=== PATIENT | female | born 1995 | race African-American/Black ===

== ENCOUNTER 2020-11-03 15:47 | Emergency (ER) | payer OTHER, SELFPAY ==
--- NOTE | 2020-11-03 15:50 | ED.EYEPROB ---
HPI - Eye Problem General Chief complaint: Eye Problems Stated complaint: Left eye Pain Time Seen by Provider: 11/03/20 16:19 Source: patient and RN notes reviewed Mode of arrival: ambulatory Limitations: no limitations History of Present Illness HPI Narrative: 25-year-old female presents concern for left eye pain, irritation, redness that started yesterday. Reports watery drainage throughout the day and crusty drainage when she woke up this morning. Reports she wears contact lenses, this pain started a day after she took out her contact lenses. She denies right eye problems, rhinorrhea, nasal congestion, sore throat. Denies visual changes. chief complaint: eye pain Related Data Allergies Allergy/AdvReac Type Severity Reaction Status Date / Time No Known Allergies Allergy Verified 11/03/20 16:00 Review of Systems Review of Systems: CONSTITUTIONAL: Denies malaise, chills, sweats, or fever. EYES: Denies visual changes. Reports left eye redness, irritation, pain, watery discharge. ENT: Denies rhinorrhea, congestion, sinus pain, otalgia or sore throat. SKIN: Denies rash or itching. NEUROLOGIC: Denies headache. All systems reviewed & are unremarkable except as noted in HPI and below PMFSH Comments At time of signature, agree with nursing past medical, surgical, social and family history. There is no relevant family history pertinent to the presenting complaint Exam Narrative: GENERAL: Well-appearing, well-nourished, and in no acute distress. HEAD: Normocephalic, atraumatic. EYES: PERRLA, right sclera clear, and EOMI. No nystagmus. Left sclera and conjunctive injected ENT: Nares clear. Mucous membranes moist. NECK: Supple. CHEST: No respiratory distress. Speaks in full sentences. HEART: Regular rate and rhythm. SKIN: Warm, dry, no visible rash. NEURO: Alert and oriented x3. PSYCH: Normal mood and affect Course Course Emergency Course: Patient is aware of diagnosis, understands and agrees to treatment plan. Anticipatory guidance given. Patient agrees to follow-up as directed and is aware of reasons to seek care at the emergency department. Portions of this record may have been created with voice recognition software Vital Signs Vital signs: Reviewed. MDM - Eye Problem MDM Narrative Medical decision making narrative: Consideration of the following conditions may be warranted for the presenting problem, they are not final diagnoses: Bacterial conjunctivitis, allergic conjunctivitis, viral conjunctivitis, foreign body, blepharitis, chalazion, hordeolum, corneal abrasion, preseptal cellulitis, orbital cellulitis. No evidence of proptosis, ophthalmoplegia, vision loss, pain with eye movement. Exam findings show no acute concerns or changes; patient is non-toxic appearing and is in no distress. Patient is appropriate for outpatient treatment and follow-up. Critical Care Time Critical Care Time Critical Care Time: No Discharge Plan Discharge Clinical Impression: Conjunctivitis Qualifiers: Conjunctivitis type: acute Acute conjunctivitis type: unspecified Laterality: left Qualified Code(s): H10.32 - Unspecified acute conjunctivitis, left eye Patient Disposition: Home, Self-Care Condition: Stable Instructions: Conjunctivitis (ED) Additional Instructions: Do not touch or rub your eye. Use a warm or cool washcloth on your eye for comfort Use eyedrops as directed Practice good handwashing and hygiene to prevent spread of infection You may take Tylenol or ibuprofen for pain Follow-up with PCP or retail service representative if condition is not improving in 2-3days. Go to the emergency room if you have pain behind your eye, pressure behind her eye, difficulty seeing, or other severe symptoms Prescriptions: New polymyxin B sulf-trimethoprim [Polytrim] 10,000 unit- 1 mg/mL drops 1 drp EACH EYE Q4H 7 Days Qty: 10 RF: 0 Follow-up/Referrals: PHYSICIAN,[facility] [facility]ER [Primary Care Provider] - Stand Alone Forms: Wor
[2020-11-03 16:04] VITALS: BP 117/59; PULSE 98; RESP 18; TEMP 36.8; O2SAT 99
== END 2020-11-03 16:31 | disposition home or self-care (01) ==
PROVIDERS: Emergency Provider Nurse Practitioner
DX: H10.32 Unspecified acute conjunctivitis, left eye (principal)
CPT/HCPCS: 99203; G0463

== ENCOUNTER 2021-05-02 10:02 | Emergency (ER) | payer OTHER, SELFPAY ==
[2021-05-02 10:12] VITALS: BP 118/56; PULSE 78; RESP 16; TEMP 36.6; O2SAT 99
--- NOTE | 2021-05-02 10:44 | ED.GENADULT ---
HPI - General Adult General Chief complaint: Upper Respiratory Infection Stated complaint: weakness/sore throat Time Seen by Provider: 05/02/21 10:44 Source: patient and RN notes reviewed Mode of arrival: ambulatory Limitations: no limitations History of Present Illness HPI narrative: 25-year-old female presented for complaint of weakness, bilateral ear pain, occasional cough and lightheadedness, onset yesterday. Endorses this morning feeling shortness of breath [id number] when she is her inhaler and felt better. Endorses a history of asthma. Denies vomiting, diarrhea, urinary complaints, fevers or chills. Sister has a fever. She has not been boosted for COVID. Has not had a flu shot. Related Data Home Medications Medication Instructions Recorded Confirmed albuterol sulfate INHALATION 05/02/21 budesonide-formoterol [Symbicort] INHALATION 05/02/21 Allergies Allergy/AdvReac Type Severity Reaction Status Date / Time No Known Allergies Allergy Verified 05/02/21 11:04 Review of Systems Review of Systems: CONSTITUTIONAL: Endorses malaise, denies chills, sweats, fever EYES: Denies visual changes, redness, or discharge ENT: Reports otalgia, denies rhinorrhea, congestion, sinus pain, sore throat CARDIOVASCULAR: Denies chest pain, palpitations, edema RESPIRATORY: Reports cough, post nasal drainage. Denies dyspnea GASTROINTESTINAL: Denies abdominal pain, nausea, vomiting, diarrhea SKIN: Denies rash or itching MUSCULOSKELETAL: Endorses myalgia NEUROLOGIC: Denies headache Exam Narrative: GENERAL: Ill-appearing, nontoxic [place] HEAD: Normocephalic EYES: PERRLA, conjunctivae clear ENT: Mucous membranes moist. TM pearly kennedy with dull light reflex bilaterally; no tragal tenderness. Oropharynx erythematous without lesions or exudate, no drooling, no hoarseness, no trismus, uvula midline. No tripod positioning, muffled voice, soft palate or pharyngeal wall bulging NECK: Supple. No lymphadenopathy CHEST: Clear to auscultation, breath sounds equal. No wheezing, rhonchi, rales, or stridor. No respiratory distress, speaks in full sentences. HEART: Regular rate and rhythm. No murmur heard. SKIN: Warm, dry, no rash. NEURO: Alert and oriented x3. PSYCH: Normal mood and affect Course Course Emergency Course: Patient is aware of diagnosis, understands and agrees to treatment plan. Anticipatory guidance given. Patient agrees to follow-up as directed and is aware of reasons to seek care at the emergency department. Portions of this record may have been created with voice recognition software Level of Care: Express Care Visit Vital Signs Vital signs: Vital Signs Temperature 97.9 F 05/02/21 10:12 Pulse Rate 78 05/02/21 10:12 Respiratory Rate 16 05/02/21 10:12 Blood Pressure 118/56 L 05/02/21 10:12 Pulse Oximetry 99 05/02/21 10:12 Temperature 97.9 F 05/02/21 10:12 Pulse Rate 78 05/02/21 10:12 Respiratory Rate 16 05/02/21 10:12 Blood Pressure 118/56 L 05/02/21 10:12 Pulse Oximetry 99 05/02/21 10:12 reviewed Medical Decision Making MDM Narrative Medical decision making narrative: Flu, Covid, strep swabs are negative. Patient will treat symptomatically. She is appropriate for outpatient treatment and follow-up. Differential Diagnosis Differential Diagnosis: Influenza, covid, sinusitis, OM, strep pharyngitis, URI Vital Signs Vital Signs: Vital Signs Temperature 97.9 F 05/02/21 10:12 Pulse Rate 78 05/02/21 10:12 Respiratory Rate 16 05/02/21 10:12 Blood Pressure 118/56 L 05/02/21 10:12 Pulse Oximetry 99 05/02/21 10:12 Temperature 97.9 F 05/02/21 10:12 Pulse Rate 78 05/02/21 10:12 Respiratory Rate 16 05/02/21 10:12 Blood Pressure 118/56 L 05/02/21 10:12 Pulse Oximetry 99 05/02/21 10:12 Lab Data Lab results reviewed: Yes I reviewed the patient's lab results. Discharge Plan Discharge Clinical Impression: Upper respiratory infection Qualifiers: URI ty
== END 2021-05-02 11:18 | disposition home or self-care (01) ==
PROVIDERS: Emergency Provider Nurse Practitioner Family
DX: J06.9 Acute upper respiratory infection, unspecified (principal); Z20.822 Contact with and (suspected) exposure to COVID-19
CPT/HCPCS: 87081; 87426; 87804; 87880; 99213; C9803; G0463

== ENCOUNTER 2021-05-27 17:10 | Emergency (ER) | payer OTHER, SELFPAY ==
[2021-05-27 17:11] VITALS: BP 131/78; PULSE 93; RESP 17; TEMP 36.9; O2SAT 99
--- NOTE | 2021-05-27 17:30 | ED.FEVER ---
HPI - Fever General Chief Complaint: Fever <MOI English Last Filed: 05/27/21 18:02> Stated Complaint: fever <MOI English Last Filed: 05/27/21 18:02> Time Seen by Provider: 05/27/21 17:22 <MOI English Last Filed: 05/27/21 18:02> Source: patient <MOI English Last Filed: 05/27/21 18:02> Mode of arrival: ambulatory <MOI English Last Filed: 05/27/21 18:02> Limitations: no limitations <MOI English Last Filed: 05/27/21 18:02> History of Present Illness HPI Narrative: This is a 26-year-old female that presents to the emergency department for cold symptoms present since yesterday. Reports fever, rhinorrhea, and sore throat. She is not influenza vaccinated. She did recently have COVID a couple of months ago. Denies cough or shortness of breath. <MOI English Last Filed: 05/27/21 18:02> Related Data Home Medications: Home Medications Medication Instructions Recorded Confirmed No Home Medications 05/27/21 05/27/21 <MOI English Last Filed: 05/27/21 18:02> Allergies/Adverse Reactions: Allergies Allergy/AdvReac Type Severity Reaction Status Date / Time No Known Allergies Allergy Verified 05/27/21 17:18 <MOI English Last Filed: 05/27/21 18:02> Review of Systems Review of Systems: CONSTITUTIONAL: Reports fever ENT: Reports rhinorrhea, sore throat, and otalgia. RESPIRATORY: Denies cough or dyspnea. <MOI English Last Filed: 05/27/21 18:02> All systems reviewed & are unremarkable except as noted in HPI and below <MOI English Last Filed: 05/27/21 18:02> [facility] Past Medical History Medical History: Medical History (Updated 04/17/22 @ 18:02 by Eliza Isidro PA-C) No active medical problems <Eliza Isidro PA-C - Last Filed: 05/27/21 18:02> Social History Social History: Social History (Updated 05/27/21 @ 17:32 by Eliza Isidor PA-C) Smoking status: Never smoker <Eliza Isidro PA-C - Last Filed: 05/27/21 18:02> Exam Narrative: GENERAL: Well-appearing, well-nourished, and in no acute distress. HEAD: Normocephalic, atraumatic. EYES: EOMI. ENT: Nares clear, no rhinorrhea or epistaxis. Mucous membranes moist. Oropharynx with mild redness and tonsillar hypertrophy, no exudate or other lesions. Bilateral TMs pearly kennedy non-bulging NECK: Supple. No adenopathy or masses. CHEST: Clear to auscultation. No respiratory distress. No wheezes rales or rhonchi HEART: Regular rate and rhythm. No murmur heard. Normal peripheral pulses. EXTREMITIES: Normal range of motion. No edema. SKIN: Warm, dry, no rash. NEURO: No focal deficits. Alert and oriented x3. PSYCH: Normal mood and affect <Eliza Isidro PA-C - Last Filed: 05/27/21 18:02> Course SWAMPER/PA Physician Supervision I did not see this patient nor was the care plan discussed with me, labs reviewed. I was available for evaluation and consultation, I agree with the documentation <Shmuel Trejo MD - Last Filed: 05/27/21 20:56> Vital Signs Vital signs: Vital Signs Temperature 36.9 C 05/27/21 17:11 Pulse Rate 93 05/27/21 17:11 Respiratory Rate 17 05/27/21 17:11 Blood Pressure 131/78 05/27/21 17:11 Pulse Oximetry 99 05/27/21 17:11 Temperature 36.9 C 05/27/21 17:11 Pulse Rate 93 05/27/21 17:11 Respiratory Rate 17 05/27/21 17:11 Blood Pressure 131/78 05/27/21 17:11 Pulse Oximetry 99 05/27/21 17:11 <Eliza Isidro PA-C - Last Filed: 05/27/21 18:02> Vital Signs Temperature 36.9 C 05/27/21 17:11 Pulse Rate 93 05/27/21 17:11 Respiratory Rate 17 05/27/21 17:11 Blood Pressure 131/78 05/27/21 17:11 Pulse Oximetry 99 05/27/21 17:11 Temperature 36.9 C 05/27/21 17:11 Pulse Rate 93 05/27/21 17:11 Respiratory Rate 17 05/27/21 17:11 Blood Pressure 131/78 05/27/21 17:11 Pulse Oxim
== END 2021-05-27 18:20 | disposition home or self-care (01) ==
PROVIDERS: Emergency Provider Emergency Medicine
DX: J06.9 Acute upper respiratory infection, unspecified (principal); Z86.16 Personal history of COVID-19
CPT/HCPCS: 87081; 87147; 87804; 87880; 99283

== ENCOUNTER 2021-08-21 18:41 | Emergency (ER) | payer OTHER, SELFPAY ==
[2021-08-21 18:48] VITALS: BP 107/60; PULSE 80; RESP 16; TEMP 36.6; O2SAT 99
--- NOTE | 2021-08-21 18:56 | ED.URI ---
HPI - URI/Sore Throat General Chief Complaint: Abdominal Pain Stated Complaint: vomiting/ear pain Time Seen by Provider: 08/21/21 18:56 Source: patient, RN notes reviewed and old records reviewed Mode of arrival: ambulatory Limitations: no limitations History of Present Illness HPI Narrative: 26-year-old female presents to the [facility] with complaints of 2 to 3 days of bilateral ear pain, generalized fatigue, generalized weakness, abdominal pain. Patient states she vomited 1 time this morning and still having abdominal pain. Patient states that she cannot be and is on her period currently. Denies any chest pain or shortness of breath. Denies fevers. States that she has vomited 1 time today and reports right lower quadrant and epigastric pain. Patient denies any abdominal surgeries. Denies any past medical or surgical history Onset (ago): day(s) (2-3) Related Data Home Medications Medication Instructions Recorded Confirmed No Home Medications 05/27/21 05/27/21 Allergies Allergy/AdvReac Type Severity Reaction Status Date / Time No Known Allergies Allergy Verified 08/21/21 19:04 Review of Systems Review of Systems: All systems reviewed & are unremarkable except as noted in HPI and below Constitutional: Constitutional: Reports no additional constitutional complaints, Denies chills and Denies fever(s) Eyes: Eyes: Reports no additional eye complaints ENT: Reports as per HPI (Bilateral ear pain) Cardiovascular: Cardiovascular: Reports no additional cardiovascular complaints Respiratory: Respiratory: Reports no additional respiratory complaints Gastrointestinal: Gastrointestinal: Reports as per HPI, Reports abdominal pain, Denies diarrhea, Reports nausea and Reports vomiting Genitourinary: Genitourinary: Reports no additional female genitourinary complaints, Denies nocturia and Denies dysuria Musculoskeletal: Musculoskeletal: Reports no additional musculoskeletal complaints Integumentary/Breasts: Skin/Breast: Reports system reviewed and no additional complaints, except as docu Neurologic: Reports system reviewed and no additional complaints, except as documented Psychiatric: Psychiatric: Reports no additional psychiatric complaints Allergic/Immunologic: Allergic/Immunologic: Reports no additional allergic/immunologic complaints PMFSH Past Medical History Medical History (Updated 08/21/21 @ 19:11 by Deborah Richards APRN) No active medical problems Surgical History Surgical History (Updated 08/21/21 @ 19:07 by Deborah Richards APRN) No pertinent past surgical history Social History Social History (Updated 08/21/21 @ 19:07 by Deborah Richards APRN) Smoking status: Never smoker Gender identity (if verbalized by the patient): Female Comments At the time of my signature, I reviewed and agree with the nursing past medical, surgical, social, and family history. There is no relevant family history pertinent to the patient complaint. Exam Const: General: healthy appearing, no acute distress and alert Nutritional Appearance: well nourished Orientation/consciousness: patient oriented x3 Limitations: no limitations HENMT: Head: normal to inspection Ears: external ears normal General nose exam: Normal external nose present Face and sinus: normal facial exam Throat: posterior oropharynx normal Eyes: General: appearance normal, both eyes and all related structures Conjunctivae: conjunctivae normal Pupils: Equal, round and reactive pupils present Neck: Neck: normal visual inspection, no lymphadenopathy and no meningeal signs Chest: Chest palpation & inspection: normal inspection of the chest Resp: Effort & Inspection: normal respiratory effort and no use of accessory muscles Auscultation: clear to auscultation bilaterally, no crackles, no rales, no rhonchi and no wheezes Cardio: Rate: regular rate Rhythm: regular rhythm GI: GI Palp: Yes Soft to palpation and Yes Tenderness to palp
== END 2021-08-21 19:07 | disposition short-term general hospital (02) ==
PROVIDERS: Emergency Provider Nurse Practitioner
DX: H92.03 Otalgia, bilateral (principal); R10.31 Right lower quadrant pain; J45.909 Unspecified asthma, uncomplicated
CPT/HCPCS: 99212; G0463

== ENCOUNTER 2021-08-21 20:22 | Emergency (ER) | payer OTHER, SELFPAY ==
[2021-08-21 21:12] VITALS: BP 93/55; PULSE 68; RESP 16; TEMP 36.4; O2SAT 100
[2021-08-21 22:26] LABS: Basophils Percent Auto 0.3 % (0.2-1.2); Eosinophils Absolute Auto 0.4 K/mm3 (0-0.3); Eosinophils Percent Auto 3.6 % (0-4.4); Hematocrit 39.2 % (37.0-47.0); Hemoglobin 12.5 g/dL (12.0-15.0); Immature Granulocyte Absolute 0.04 K/mm3 (0.00-0.031); Immature Granulocyte Percent A 0.4 % (0-0.5); Lymphocytes Absolute Auto 3.29 K/mm3 (0.9-3.2); Lymphocytes Percent Auto 33.6 % (18.3-44.2); Mean Corpuscular HGB Conc 31.9 g/dl (32-36); Mean Platelet Volume 9.9 fl (7.4-10.4); Monocytes Absolute Auto 0.7 K/mm3 (0.1-0.6); Monocytes Percent Auto 7.3 % (2.6-8.5); Neutrophils Absolute Auto 5.4 K/mm3 (1.3-6.7); Neutrophils Percent Auto 54.8 % (45.5-73.1); Platelet Count Result 267 k/mm3 (150-375); Red Blood Count 4.17 M/mm3 (4.2-5.4); Red Cell Distribution Width 12.3 % (11.5-14.5); White Blood Count 9.8 K/mm3 (4.5-10.0)
[2021-08-21 22:36] LABS: Alanine Aminotransferase 12 U/L (6-35); Albumin Level 4.1 g/dL (3.5-5.1); Alkaline Phosphatase 57 U/L (38-126); Anion Gap 6 mmol/L (8-16); Aspartate Amino Transferase 21 U/L (14-36); Bilirubin,Total 0.2 mg/dL (0.2-1.3); Blood Urea Nitrogen 13 mg/dL (7-17); Calcium 8.5 mg/dL (8.4-10.2); Carbon Dioxide 27 mmol/L (22-30); Chloride 106 mmol/L (98-107); Estimated CRCL calculation 71 ml/min; Estimated Glomerular Filt Rate > 60; Glucose 89 mg/dL (65-110); Lipase 39 U/L (23-300); Potassium 4.1 mmol/L (3.4-5.0); Sodium 139 mmol/L (137-145)
== END 2021-08-21 22:43 | disposition left against medical advice (07) ==
LOC: ANHED 22:49
PROVIDERS: Emergency Provider Emergency Medicine
DX: R10.9 Unspecified abdominal pain (principal)
CPT/HCPCS: 36415; 80053; 83690; 85025; 99199

== ENCOUNTER 2021-12-31 14:13 | Emergency (ER) | payer OTHER, SELFPAY ==
[2021-12-31 14:35] VITALS: BP 101/53; PULSE 77; RESP 12; TEMP 36.4; O2SAT 100
--- NOTE | 2021-12-31 14:45 | ED.URI ---
HPI - URI/Sore Throat General Chief Complaint: Upper Respiratory Infection Stated Complaint: Nausea, SOB Time Seen by Provider: 12/31/21 14:45 Source: patient, RN notes reviewed and old records reviewed Mode of arrival: ambulatory Limitations: no limitations History of Present Illness HPI Narrative: 26-year-old female presents to the [facility] with complaints of increasing shortness of breath for over a week. Generalized chest pain and vomited a couple of blood clots this morning. Denies any nausea or abdominal pain. Has history of anemia. Reports having fevers. Denies any nausea or vomiting. Denies coughing but states that she is still very short of breath and feels like there is tingling, pressure in her chest Pertinent past history: other (Anemia) Related Data Home Medications Medication Instructions Recorded Confirmed No Home Medications 05/27/21 12/31/21 Allergies Allergy/AdvReac Type Severity Reaction Status Date / Time No Known Allergies Allergy Verified 12/31/21 14:31 Review of Systems Review of Systems: All systems reviewed & are unremarkable except as noted in HPI and below Constitutional: Constitutional: Reports no additional constitutional complaints, Denies chills and Denies fever(s) Eyes: Eyes: Reports no additional eye complaints ENT: Reports system reviewed and no additional complaints, except as documented Cardiovascular: Cardiovascular: Reports as per HPI and Reports chest pain Respiratory: Respiratory: Reports as per HPI, Denies chest congestion, Denies cough, Reports dyspnea and Denies wheezing Gastrointestinal: Gastrointestinal: Reports as per HPI, Denies abdominal pain, Denies nausea and Reports vomiting (Blood clots) Musculoskeletal: Musculoskeletal: Reports no additional musculoskeletal complaints Integumentary/Breasts: Skin/Breast: Reports system reviewed and no additional complaints, except as docu Neurologic: Reports system reviewed and no additional complaints, except as documented Psychiatric: Psychiatric: Reports no additional psychiatric complaints Allergic/Immunologic: Allergic/Immunologic: Reports no additional allergic/immunologic complaints PMFSH Past Medical History Medical History (Updated 12/31/21 @ 15:42 by Deborah Richards APRN) No active medical problems Surgical History Surgical History (Updated 08/21/21 @ 19:07 by Deborah Richards APRN) No pertinent past surgical history Social History Social History (Updated 08/21/21 @ 19:07 by Deborah Richards APRN) Smoking status: Never smoker Gender identity (if verbalized by the patient): Female Comments At the time of my signature, I reviewed and agree with the nursing past medical, surgical, social, and family history. There is no relevant family history pertinent to the patient complaint. Exam Const: General: healthy appearing, comfortable, no acute distress, well developed, alert and well nourished Nutritional Appearance: well nourished Orientation/consciousness: patient oriented x3 Limitations: no limitations HENMT: Head: normal to inspection Ears: external ears normal, TM's normal bilaterally and EAC's normal Face/Nose/Sinus: Normal external nose present and Normal nares present Face and sinus: normal facial exam Mouth: Yes moist mucous membranes and Yes Abnormal oral and palatal mucosa present other (PALE PINK) Eyes: General: appearance normal, both eyes and all related structures Conjunctivae: conjunctival abnormality bilateral pallor Pupils: Equal, round and reactive pupils present Neck: Neck: normal visual inspection, full ROM, no lymphadenopathy and no meningeal signs Chest: Chest palpation & inspection: normal inspection of the chest and no tenderness Resp: Effort & Inspection: normal respiratory effort and no use of accessory muscles Auscultation: clear to auscultation bilaterally, no crackles, no rales, no rhonchi and no wheezes Cardio: Rate: regular rate Rhythm: regular rhythm
== END 2021-12-31 14:55 | disposition short-term general hospital (02) ==
PROVIDERS: Emergency Provider Nurse Practitioner
DX: R06.00 Dyspnea, unspecified (principal); K92.0 Hematemesis; J45.909 Unspecified asthma, uncomplicated
CPT/HCPCS: 99212; G0463

== ENCOUNTER 2022-06-07 11:32 | Emergency (ER) | payer OTHER, SELFPAY ==
[2022-06-07 11:38] VITALS: BP 100/66; PULSE 75; RESP 16; TEMP 36.6; O2SAT 100
--- NOTE | 2022-06-07 11:46 | ED.EAR ---
HPI - Ear Problem General Chief complaint: Ear Stated complaint: loss of hearing rt ear Time Seen by Provider: 06/07/22 11:46 Source: patient Mode of arrival: ambulatory Limitations: no limitations History of Present Illness HPI Narrative: 27-year-old female presented for complaint of decreased hearing to the right ear for about 3 months. Endorses mild pain, occasional tinnitus and dizziness. She has been using Q-tips for ear wax removal. Denies ear drainage, nausea, vomiting, fever or chills. Also requesting Rx Flonase. MD Complaint: ear pain Related Data Allergies Allergy/AdvReac Type Severity Reaction Status Date / Time No Known Allergies Allergy Verified 06/07/22 11:38 Review of Systems Review of Systems: CONSTITUTIONAL: Denies malaise, chills, or fever. EYES: Denies visual changes, redness, or discharge. ENT: Denies rhinorrhea, congestion, sinus pain, and sore throat. Reports ear pain CARDIOVASCULAR: Denies chest pain, palpitations, or edema. RESPIRATORY: Denies cough or dyspnea. GASTROINTESTINAL: Denies abdominal pain, nausea, vomiting, diarrhea SKIN: Denies rash or itching. MUSCULOSKELETAL: Denies myalgia. NEUROLOGIC: Denies headache. All systems reviewed & are unremarkable except as noted in HPI and below PMFSH Past Medical History Medical History No active medical problems Surgical History Surgical History No pertinent past surgical history Social History Social History Smoking status: Never smoker Gender identity (if verbalized by the patient): Female Comments At time of signature, agree with nursing past medical, surgical, social and family history. There is no relevant family history pertinent to the presenting complaint Exam Narrative: GENERAL: Well-appearing, well-nourished, and in no acute distress. HEAD: Normocephalic EYES: PERRLA, conjunctivae clear ENT: Nares clear. Mucous membranes moist. Left TM pearly kennedy with dull light reflex; Right TM obstructed by impacted cerumen; no tragal tenderness. Oropharynx not erythematous without lesions. NECK: Supple. No lymphadenopathy CHEST: No respiratory distress, speaks in full sentences. SKIN: Warm, dry, no rash. NEURO: Alert and oriented x3. PSYCH: Normal mood and affect Course Course Emergency Course: Patient is aware of diagnosis, understands and agrees to treatment plan. Anticipatory guidance given. Patient agrees to follow-up as directed and is aware of reasons to seek care at the emergency department. Portions of this record may have been created with voice recognition software Level of Care: Express Care Visit Vital Signs Vital signs: Vital Signs Temperature 97.9 F 06/07/22 11:38 Pulse Rate 75 06/07/22 11:38 Respiratory Rate 16 06/07/22 11:38 Blood Pressure 100/66 06/07/22 11:38 Pulse Oximetry 100 06/07/22 11:38 Oxygen Delivery Room Air 06/07/22 11:38 Temperature 97.9 F 06/07/22 11:38 Pulse Rate 75 06/07/22 11:38 Respiratory Rate 16 06/07/22 11:38 Blood Pressure 100/66 06/07/22 11:38 Pulse Oximetry 100 06/07/22 11:38 Oxygen Delivery Room Air 06/07/22 11:38 Reviewed Procedures Ear Wax Removal Right Ear: Ear Wax Removal Date: 06/07/22 Cerumenolytic Used: other (Hydrogen peroxide and warm water) Results: Re-examined: cerumen removed completely (large amount) TM Examination: TM(s) intact, normal appearance Ear Canal Exam: atraumatic Patient Tolerated Procedure: well and no complications Technique: ear canal irrigated and ear canal curetted Medical Decision Making MDM Narrative Medical decision making narrative: Advised supportive measures and signs/symptoms to go to the ER. Patient is appropriate for outpatient treatment and follow-up. Differential Diagnos
== END 2022-06-07 11:57 | disposition home or self-care (01) ==
PROVIDERS: Emergency Provider Nurse Practitioner Family
DX: H61.21 Impacted cerumen, right ear (principal)
CPT/HCPCS: 69210; 99213; A9270; G0463

== ENCOUNTER 2022-08-24 11:11 | Emergency (ER) | payer OTHER, SELFPAY ==
[2022-08-24 11:21] VITALS: BP 99/57; PULSE 72; RESP 16; TEMP 37.2; O2SAT 100
--- NOTE | 2022-08-24 12:06 | ED.HA ---
HPI - Headache General Chief Complaint: Headache Stated Complaint: head pain, body pain Time Seen by Provider: 08/24/22 11:57 Source: patient and RN notes reviewed Mode of arrival: ambulatory Limitations: no limitations History of Present Illness HPI Narrative: Patient presents today complaining of body aches since yesterday and headache since this morning. Denies any additional symptoms to include rhinorrhea, cough congestion, photophobia nausea vomiting, dizziness or lightheadedness, vision changes. She has tried no medication for symptoms prior to arrival and currently rates her pain 9/10. States this is not her worst headache ever. States she typically will take Tylenol when she has a headache, but did not take any this time. Related Data Allergies Allergy/AdvReac Type Severity Reaction Status Date / Time No Known Allergies Allergy Verified 08/24/22 11:21 Review of Systems Review of Systems: CONSTITUTIONAL: Denies fever, chills, or sweats.+ body aches EYES: Denies visual changes, redness, or discharge. ENT: Denies rhinorrhea, congestion, sore throat, or otalgia. CARDIOVASCULAR: Denies chest pain, palpitations, or edema. RESPIRATORY: Denies cough or dyspnea. GASTROINTESTINAL: Denies abdominal pain, nausea, vomiting, or diarrhea. GENITOURINARY: Denies dysuria or hematuria. SKIN: Denies rash, itching, or wounds. MUSCULOSKELETAL: Denies back pain, joint pain, or myalgia. NEUROLOGIC: Denies numbness, tingling, or weakness.+ headache PSYCH: Denies depression or anxiety. PMFSH Past Medical History Medical History No active medical problems Surgical History Surgical History No pertinent past surgical history Social History Social History Smoking status: Never smoker Gender identity (if verbalized by the patient): Female Comments At time of signature, I have reviewed and agree with nursing past medical, surgical, social and family history unless otherwise noted. Please see nursing chart for further information. There is no relevant family history pertinent to the presenting complaint Exam Narrative: GENERAL: Well-appearing, well-nourished, and in no acute distress. HEAD: Normocephalic, atraumatic. EYES: EOMI. PERRL. No redness or drainage. Conjunctivae normal. ENT: Mucous membranes pink and moist. NECK: Normal AROM. Supple. No lymphadenopathy. CHEST: No respiratory distress. Clear to auscultation. HEART: Regular rate and rhythm. No murmur appreciated. Normal peripheral pulses. EXTREMITIES: Normal range of motion. No edema. SKIN: Warm, dry, no rash. Capillary refill normal. Normal skin turgor. NEURO: No focal deficits. Alert and oriented x3. Gait steady. 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 Dorsiflexion and plantar flexion equal and strong against resistance. PSYCH: Normal affect. No signs of depression or anxiety. Course Course Level of Care: Express Care Visit Vital Signs Vital signs: Vital Signs Temperature 98.9 F 08/24/22 11:21 Pulse Rate 72 08/24/22 11:21 Respiratory Rate 16 08/24/22 11:21 Blood Pressure 99/57 L 08/24/22 11:21 Pulse Oximetry 100 08/24/22 11:21 Oxygen Delivery Room Air 08/24/22 11:21 Temperature 98.9 F 08/24/22 11:21 Pulse Rate 72 08/24/22 11:21 Respiratory Rate 16 08/24/22 11:21 Blood Pressure 99/57 L 08/24/22 11:21 Pulse Oximetry 100 08/24/22 11:21 Oxygen Delivery Room Air 08/24/22 11:21 Reviewed MDM - Headache MDM Narrative Medical decision making narrative: Offered patient a dose of IM Toradol for her headache. She has declined, but will accept a dose of p.o. ibuprofen. Instructed patient to continue ibuprofen at home for her symptoms. Patient requested work note. In no prescription medications indicated at this time. Anticipatory gu
[2022-08-24] MEDS: IBUPROFEN 600 MG TABLET PO (12:13)
== END 2022-08-24 12:35 | disposition home or self-care (01) ==
PROVIDERS: Emergency Provider Nurse Practitioner; PCP Family Medicine
DX: R51.9 Headache, unspecified (principal)
CPT/HCPCS: 99212; A9270; G0463

== ENCOUNTER 2022-09-15 17:34 | Emergency (ER) | payer OTHER, SELFPAY ==
[2022-09-15 17:45] VITALS: BP 103/65; PULSE 72; RESP 14; TEMP 36.8; O2SAT 100
--- NOTE | 2022-09-15 17:59 | ED.EAR ---
HPI - Ear Problem General Chief complaint: Ear Stated complaint: Ears Irritation Time Seen by Provider: 09/15/22 17:59 Source: patient, RN notes reviewed and old records reviewed Mode of arrival: ambulatory Limitations: no limitations History of Present Illness HPI Narrative: 27-year-old female who presents to [facility] reports left ear intermittently for the past 3 weeks. Patient states that in the past 4 days her ear has been continuously painful with muffled hearing and also has headache today. Patient denies any drainage from her left ear, denies any sore throat, runny nose,cough, or any fevers. Patient reports that she has not taken anything for her discomfort OTC. MD Complaint: ear pain Location: left ear Severity: moderate Discharge from ear: Reports no Related Data Allergies Allergy/AdvReac Type Severity Reaction Status Date / Time No Known Allergies Allergy Verified 09/15/22 17:45 Review of Systems Review of Systems: CONSTITUTIONAL: Denies malaise, chills, sweats, or fever. EYES: Denies visual changes, redness, or discharge. ENT: Reports no rhinorrhea, congestion, sinus pain,positive for left otalgia, no sore throat. CARDIOVASCULAR: Denies chest pain, palpitations, or edema. RESPIRATORY: Reports no cough.? Denies dyspnea. GASTROINTESTINAL: Denies abdominal pain, nausea, vomiting, diarrhea SKIN: Denies rash or itching. MUSCULOSKELETAL: Denies myalgia. NEUROLOGIC: Reports headache. All systems reviewed & are unremarkable except as noted in HPI and below PMFSH Past Medical History Medical History (Updated 09/17/22 @ 08:27 by Charlotte Goldstein NP) Asthma Seizures no on any medications Surgical History Surgical History No pertinent past surgical history Social History Social History Smoking status: Never smoker Gender identity (if verbalized by the patient): Female Comments At time of signature, agree with nursing past medical, surgical, social and family history. There is no relevant family history pertinent to the presenting complaint Exam Narrative: GENERAL: Well-appearing, well-nourished, and in no acute distress. HEAD: Normocephalic EYES: PERRLA, conjunctivae clear ENT: Nares clear, turbinates edematous and erythematous, clear discharge. Mucous membranes moist. Left TM red and bulging no drainage, Right TM pearly kennedy with dull light reflex; no tragal tenderness. Oropharynx erythematous without lesions. Tonsils not enlarged and without exudate, no drooling, no hoarseness, no trismus, uvula midline. NECK: Supple. No lymphadenopathy CHEST: Clear to auscultation, breath sounds equal. No wheezing, rhonchi, rales, or stridor. No respiratory distress, speaks in full sentences.SAO2 100% on room air HEART: Regular rate and rhythm. No murmur heard. SKIN: Warm, dry, no rash. NEURO: Alert and oriented x3. PSYCH: Normal mood and affect Course Course Emergency Course: Patient is aware of diagnosis, understands and agrees to treatment plan.? Anticipatory guidance given.? Patient agrees to follow-up as directed and is aware of reasons to seek care at the emergency department. Portions of this record may have been created with voice recognition software Level of Care: Express Care Visit Vital Signs Vital signs: Vital Signs Temperature 36.8 C 09/15/22 17:45 Pulse Rate 72 09/15/22 17:45 Respiratory Rate 14 09/15/22 17:45 Blood Pressure 103/65 09/15/22 17:45 Pulse Oximetry 100 09/15/22 17:45 Oxygen Delivery Room Air 09/15/22 17:45 Temperature 36.8 C 09/15/22 17:45 Pulse Rate 72 09/15/22 17:45 Respiratory Rate 14 09/15/22 17:45 Blood Pressure 103/65 09/15/22 17:45 Pulse Oximetry 100 09/15/22 17:45 Oxygen Delivery Room Air 09/15/22 17:45 Reviewed Medical Decision Making Differential Diagno
== END 2022-09-15 18:18 | disposition home or self-care (01) ==
PROVIDERS: Emergency Provider Registered Nurse; PCP Physician Assistant
DX: H66.92 Otitis media, unspecified, left ear (principal); J45.909 Unspecified asthma, uncomplicated
CPT/HCPCS: 99213; G0463

== ENCOUNTER 2023-01-21 10:43 | Emergency (ER) | payer OTHER, SELFPAY ==
[2023-01-21 10:47] VITALS: BP 108/54; PULSE 76; RESP 20; TEMP 36.7; O2SAT 100
== END 2023-01-21 12:30 | disposition left against medical advice (07) ==
LOC: ANHED 12:29
PROVIDERS: PCP Physician Assistant
DX: M54.50 Low back pain, unspecified (principal)
CPT/HCPCS: 99199